=== PATIENT | female | born 1940 | race Hispanic/Latino ===

== ENCOUNTER 2021-08-09 15:23 | Outpatient (CLI) | payer OTHER | END 2021-08-09 22:38 | disposition home or self-care (01) | LOC: CT 15:23 | PROVIDERS: ATTEND Internal Medicine Pulmonary Disease | DX: J43.2 Centrilobular emphysema (principal) ==

== ENCOUNTER 2022-09-10 16:13 | Outpatient (CLI) | payer OTHER | END 2022-09-10 19:37 | disposition home or self-care (01) | LOC: RAD 16:13 | PROVIDERS: ATTEND Nurse Practitioner Family | DX: M25.561 Pain in right knee (principal); M79.604 Pain in right leg ==